=== PATIENT | female | born 1950 | race Caucasian/White ===

== ENCOUNTER 2022-01-09 10:46 | Emergency (ER) | payer MEDICARE, OTHER ==
[~2022-01-09 10:46] MED LIST: AMBIEN10 MG PO; ASPIRIN81 MG PO; BENADRYL25 MG PO; CARAFATE1 G/10 ML PO; LEVAQUIN 500MG500 MG PO; PERCOCET 10/321 EACH PO; PRILOSEC20 MG PO; VALIUM5 MG PO; ZIAC 2.5-6.251 EACH PO
== END 2022-01-09 12:05 | disposition home or self-care (01) ==
LOC: FER 10:46
DX: S63.512A Sprain of carpal joint of left wrist, initial encounter (principal); W19.XXXA Unspecified fall, initial encounter; Y92.009 Unspecified place in unspecified non-institutional (private) residence as the place of occurrence of the external cause
CPT/HCPCS: 73110

== ENCOUNTER 2022-06-17 12:16 | Emergency (ER) | payer MEDICARE, OTHER ==
[2022-06-17 13:29] LABS: BASOPHIL 0.6 % (0-2); EOSINOPHIL 1.3 % (0-7); HCT 31.3 % (37.0-47.0); HGB 9.3 g/dl (12.5-16.0); MCH 23.3 pg (25.0-31.0); MCHC 29.7 g/dL (32.0-36.0); MCV 78.4 fL (78.0-100.0); MONOCYTE 10.8 % (0-12); MPV 9.5 fL (6.0-9.5); NEUTROPHIL 73.7 % (41-80); NRBC 0; PLT 723 K/uL (150-400); RBC 3.99 M/uL (4.20-5.40); RDW 19.2 % (11.5-14.0); WBC 10.9 K/uL (4.0-10.5)
[2022-06-17 13:44] LABS: ALBUMIN 3.6 g/dL (3.4-5.0); BILIRUBIN - TOTAL 0.3 mg/dL (0.2-1.0); BUN/CREAT RATIO (CALC) 13.6 RATIO; CREATININE 0.88 mg/dL (0.51-0.95); GLOBULIN (CALCULATION) 3.8 g/dL; POTASSIUM 4.3 mmol/L (3.5-5.1); TOTAL PROTEIN 7.4 g/dL (6.4-8.2)
[2022-06-17] MEDS ORDERED: PREDNISONE 20MG20 MG PO (15:24)
[2022-06-17 15:49] LABS: BILIRUBIN NEGATIVE (NEGATIVE); BLOOD NEGATIVE Ery/uL (NEGATIVE); CLARITY CLEAR (CLEAR); COLOR YELLOW (YELLOW); GLUCOSE (U) NORMAL (NORMAL); LEUKOCYTES NEGATIVE Leu/uL (NEGATIVE); NITRITE NEGATIVE (NEGATIVE); PROTEIN NEGATIVE (NEGATIVE); UROBILINOGEN 0.2 mg/dL (0.2-1.0); pH 6.5 (5.0-9.0)
== END 2022-06-17 15:44 | disposition home or self-care (01) ==
LOC: FER 12:16
PROVIDERS: Emergency Medicine
DX: J44.1 Chronic obstructive pulmonary disease with (acute) exacerbation (principal); I10 Essential (primary) hypertension; F17.200 Nicotine dependence, unspecified, uncomplicated; R42 Dizziness and giddiness; R11.2 Nausea with vomiting, unspecified; Z20.822 Contact with and (suspected) exposure to COVID-19
CPT/HCPCS: 36415; 71045; 80053; 81003; 85025; 94640; J2930; J7040; U0002